=== PATIENT | male | born 1980 | race Caucasian/White ===

== ENCOUNTER 2022-01-27 17:32 | Emergency (ER) | payer OTHER, SELFPAY ==
--- NOTE | ~2022-01-27 | CT_ITS ---
EXAMINATION: CT abdomen pelvis w con DATE: 01/27/2022 19:40 INDICATION: rectal abscess TECHNIQUE: Computed tomography (CT) of the abdomen and pelvis was performed with 100 mL Omnipaque-300 intravenous contrast. Automated exposure control and iterative reconstruction technique were employe d. The dose-length product was 416.18 mGy-cm. COMPARISON: None. FINDINGS: Lower thorax: Unremarkable Liver: Normal. Biliary/Gallbladder: Gallbladder is normal. No bile duct dilation. Pancreas: No mass or duct dilation. Spleen: Normal. Adrenals:No mass. Kidneys: No mass, stone, or hydronephrosis. GI tract: No small or large bowel dilation. Appendix not visualized. Mesentery/Peritoneum: No ascites, mass, or free air. Retroperitoneum: No mass. Pelvis: Small volume free pelvic fluid, otherwise the pelvic organs are within normal limits. Soft Tissues: Subcutaneous fat stranding in the perineum. Bones: No acute osseous finding. Presumed chronic or physiologic wedge deformities of multiple lower thoracic vertebral bodies. IMPRESSION: No CT evidence of rectal abscess. Perineal subcutaneous edema/inflammation. Small volume free pelvic fluid, of doubtful clinical significance. Reviewed, dictated and finalized at location K. IMPRESSION: No CT evidence of rectal abscess. Perineal subcutaneous edema/inflammation. Sma ll volume free pelvic fluid, of doubtful clinical significance.
--- NOTE | ~2022-01-27 | XR_ITS ---
EXAM: XR wrist LT min 3V DATE: 01/27/2022 19:06 HISTORY: FALL TODAY,PAIN AROUND ENTIRE WRIST INTO RT SIDE WRIST . COMPARISON: None available. FINDINGS: Normal mineralization. No fracture or dislocation. No lytic or blastic lesion. Joint space s are maintained. No erosion or periosteal change. Soft tissues within normal limits. IMPRESSION: No acute osseous finding in the left wrist. Reviewed, dictated and finalized at location K.
[2022-01-27 17:55] VITALS: BP 127/71; PULSE 74; RESP 16; TEMP 36.4; O2SAT 99
--- NOTE | 2022-01-27 18:53 | ED.SKABFB ---
HPI - Skin/Abscess/Foreign Bdy General Chief complaint: Skin/Abscess/Foreign Body Stated complaint: knot on anus Time Seen by Provider: 01/27/22 18:38 History of Present Illness HPI narrative: 41-year-old male presents emergency room for multiple complaints. Patient states this morning he noticed a painful lump on his anus when he was using the restroom. States he had his boyfriend look, and there was a pea-sized red, painful mass there. Patient states that he freaked out and fell backwards landing on his left wrist. Patient is also complaining of left wrist pain with movement. Related Data Allergies Allergy/AdvReac Type Severity Reaction Status Date / Time ketorolac Allergy Unknown Swelling Verified 01/27/22 18:27 of Lip/Tongue/Throat Penicillins Allergy Unknown Anaphylactic Verified 01/27/22 18:27 Shock tramadol Allergy Unknown Muscle Verified 01/27/22 18:27 Spasms strawberry Allergy Anaphylaxis Verified 01/27/22 18:27 ibuprofen AdvReac Unknown ACID REFLUX Verified 10/09/15 00:08 Review of Systems Review of Systems: CONSTITUTIONAL: Denies fever, chills, or sweats. EYES: Denies visual changes, redness, or discharge. ENT: Denies rhinorrhea, congestion, sore throat, or otalgia. CARDIOVASCULAR: Denies chest pain, palpitations, or edema. RESPIRATORY: Denies cough or dyspnea. GASTROINTESTINAL: Reports painful rectal mass GENITOURINARY: Denies dysuria or hematuria. SKIN: Denies rash or itching. MUSCULOSKELETAL: Reports left wrist pain NEUROLOGIC: Denies headache, numbness, dizziness, or weakness. PSYCHIATRIC: Denies anxiety or depression. Exam Narrative: GENERAL: Well-appearing, well-nourished, and in no acute distress. HEAD: Normocephalic, atraumatic. EYES: PERRLA and EOMI. CHEST: Clear to auscultation. No respiratory distress. No wheezes rales or rhonchi HEART: Regular rate and rhythm. No murmur heard. Normal peripheral pulses. ABDOMEN: Soft, nontender, nondistended, normal active bowel sounds. Erythematous, indurated, pea-sized tender mass to external rectum EXTREMITIES: Left wrist: Tenderness and swelling over posterior wrist, limited range of motion due to pain, no snuffbox tenderness SKIN: Warm, dry, no rash. NEURO: No focal deficits. Alert and oriented x3. PSYCH: Normal mood and affect. Course Vital Signs Vital signs: Vital Signs Temperature 36.4 C L 01/27/22 17:55 Pulse Rate 74 01/27/22 17:55 Respiratory Rate 16 01/27/22 17:55 Blood Pressure 127/71 01/27/22 17:55 Pulse Oximetry 99 01/27/22 17:55 Oxygen Delivery Room Air 01/27/22 17:55 Temperature 36.4 C L 01/27/22 17:55 Pulse Rate 74 01/27/22 17:55 Respiratory Rate 16 01/27/22 17:55 Blood Pressure 127/71 01/27/22 17:55 Pulse Oximetry 99 01/27/22 17:55 Oxygen Delivery Room Air 01/27/22 17:55 MDM - Skin/Abscess/Foreign Bdy MDM Narrative Medical decision making narrative: 41-year-old male presented the emergency room for evaluation of a tender indurated mass to the external rectum. Patient is a was uncomfortable when he had bowel movements. Patient states that he will go 2 to 3 days without having a bowel movement, denying any constipation. CBC showed no evidence of a infection. There were concerns for a rectal abscess, CT abdomen with contrast showed no evidence of a rectal abscess. Patient likely has a hemorrhoid. Will provide patient instructions for care of hemorrhoids, and cover him for any potential early abscess. Lab Data Result diagrams: 01/27/22 18:58 01/27/22 18:58 Labs: Lab Results 01/27/22 01/27/22 Range/Units 18:58 18:58 WBC 7.1 (4.5-10.0) K/mm3 RBC 4.42 L (4.6-6.20) M/mm3 Hgb 13.7 L (14.0-18.0) g/dL Hct 39.8 L (42.0-52.0) % MCV 90.0 (80-100) fl MCH 31.0 (26-34) pg MCHC 34.4 (32-36) g/dl RDW 12.8 (11.5-14.5) % Plt Count 254 (150-375) k/mm3 MPV 10.4 (7.4-10.4) fl Immature Gran % (Auto) 0.3 (0-0.5
[2022-01-27 19:04] LABS: Basophils Percent Auto 0.4 % (0.2-1.2); Eosinophils Absolute Auto 0.2 K/mm3 (0-0.3); Eosinophils Percent Auto 2.2 % (0-4.4); Hematocrit 39.8 % (42.0-52.0); Hemoglobin 13.7 g/dL (14.0-18.0); Immature Granulocyte Absolute 0.02 K/mm3 (0.00-0.031); Immature Granulocyte Percent A 0.3 % (0-0.5); Lymphocytes Absolute Auto 1.96 K/mm3 (0.9-3.2); Lymphocytes Percent Auto 27.5 % (18.3-44.2); Mean Corpuscular HGB Conc 34.4 g/dl (32-36); Mean Platelet Volume 10.4 fl (7.4-10.4); Monocytes Absolute Auto 0.5 K/mm3 (0.1-0.6); Neutrophils Absolute Auto 4.5 K/mm3 (1.3-6.7); Neutrophils Percent Auto 62.6 % (45.5-73.1); Platelet Count Result 254 k/mm3 (150-375); Red Blood Count 4.42 M/mm3 (4.6-6.20); Red Cell Distribution Width 12.8 % (11.5-14.5); White Blood Count 7.1 K/mm3 (4.5-10.0)
[2022-01-27 19:13] LABS: Alanine Aminotransferase 25 U/L (6-50); Albumin Level 3.9 g/dL (3.5-5.1); Alkaline Phosphatase 46 U/L (38-126); Anion Gap 3 mmol/L (8-16); Aspartate Amino Transferase 24 U/L (17-59); Bilirubin,Total 0.5 mg/dL (0.2-1.3); Blood Urea Nitrogen 17 mg/dL (9-20); Calcium 8.6 mg/dL (8.4-10.2); Carbon Dioxide 26 mmol/L (22-30); Chloride 106 mmol/L (98-107); Estimated CRCL calculation 134 ml/min; Estimated Glomerular Filt Rate > 60; Glucose 102 mg/dL (65-110); Sodium 135 mmol/L (137-145)
[2022-01-27] MEDS: ONDANSETRON INJ 4 MG/2 ML VIAL (20:51)
[2022-01-27 20:59] VITALS: BP 117/92; PULSE 52; RESP 18; O2SAT 99
== END 2022-01-27 21:02 | disposition home or self-care (01) ==
PROVIDERS: Emergency Provider Nurse Practitioner Family
DX: K64.4 Residual hemorrhoidal skin tags (principal); K61.1 Rectal abscess; S69.92XA Unspecified injury of left wrist, hand and finger(s), initial encounter; W18.39XA Other fall on same level, initial encounter
CPT/HCPCS: 36415; 73110; 74177; 80053; 85025; 96374; 99284; J2405; Q9967

== ENCOUNTER 2022-05-20 13:27 | Emergency (ER) | payer OTHER, SELFPAY ==
--- NOTE | ~2022-05-20 | XR_ITS ---
EXAM: XR ankle RT min 3V DATE: 05/20/2022 14:12 HISTORY: pallet fell on foot x2 days ago, surgery 25 yrs ago . COMPARISON: None available. FINDINGS: K wire and cerclage wire fixation of the medial tibia and medial soft ligaments. No hardwar e fracture or lucency. Moderate degenerative change of the tibiotalar joint. Achilles enthesopathy. O ld healed distal fibular fracture. Ovoid old fracture fragment versus ossified loose body in the late ral joint compartment. Normal mineralization. No acute fracture or dislocation. No lytic or blastic l esion. Ankle joint effusion. Medial soft tissue swelling. IMPRESSION: No acute osseous finding or hardware related complication detected in the right ankle. Reviewed, dictated and finalized at location K.
[2022-05-20 13:59] VITALS: BP 119/64; PULSE 59; RESP 16; TEMP 36.3; O2SAT 100
--- NOTE | 2022-05-20 16:06 | ED.LOWEXIN ---
HPI - Extremity Injury (Lower) General Chief Complaint: Extremity Injury, Lower <ABIMAEL Carvalho Last Filed: 05/20/22 16:17> Stated Complaint: Right Foot Injury <ABIMAEL Carvalho Last Filed: 05/20/22 16:17> Time Seen by Provider: 05/20/22 15:22 <ABIMAEL Carvalho Last Filed: 05/20/22 16:17> Source: patient <ABIMAEL Carvalho Last Filed: 05/20/22 16:17> Mode of arrival: ambulatory <ABIMAEL Carvalho Last Filed: 05/20/22 16:17> Limitations: no limitations <ABIMAEL Carvalho Last Filed: 05/20/22 16:17> History of Present Illness HPI Narrative: Patient is a 41 y/o male who presents to the ED with c/o R ankle pain. Patient reports he was at work on Saturday when a wooden pallet fell onto his right foot. He complains of pain and swelling to his right ankle/foot since then. He has been able to ambulate, but has pain with this. Denies any numbness, tingling. No other injuries. Patient has not taken anything for pain. He reports history of right ankle surgery 25 years ago. <ABIMAEL Carvalho Last Filed: 05/20/22 16:17> Related Data Allergies/Adverse Reactions: Allergies Allergy/AdvReac Type Severity Reaction Status Date / Time ketorolac Allergy Unknown Swelling Verified 05/20/22 15:21 of Lip/Tongue/Throat Penicillins Allergy Unknown Anaphylactic Verified 05/20/22 15:21 Shock tramadol Allergy Unknown Muscle Verified 05/20/22 15:21 Spasms strawberry Allergy Anaphylaxis Verified 05/20/22 15:21 ibuprofen AdvReac Unknown ACID REFLUX Verified 05/20/22 15:21 <ABIMAEL Carvalho Last Filed: 05/20/22 16:17> Review of Systems Review of Systems: CONSTITUTIONAL: Denies fever, chills, or sweats. MUSCULOSKELETAL: Reports R ankle/foot pain. NEUROLOGIC: Denies tingling, numbness, or weakness. <Sherri Gamboa PA-C - Last Filed: 05/20/22 16:17> All systems reviewed & are unremarkable except as noted in HPI and below <Sherri Gamboa PA-C - Last Filed: 05/20/22 16:17> PMFSH Past Medical History Medical History: Medical History (Updated 05/20/22 @ 16:17 by Sherri Gamboa PA-C) No pertinent past medical history <Sherri Gamboa PA-C - Last Filed: 05/20/22 16:17> Surgical History Surgical History: Surgical History (Updated 05/20/22 @ 16:09 by Sherri Gamboa PA-C) History of ankle surgery <Sherri Gamboa PA-C - Last Filed: 05/20/22 16:17> Social History Social History: Social History (Updated 05/20/22 @ 16:09 by Sherri Gamboa PA-C) Smoking status: Current every day smoker Tobacco type: cigarettes <Sherri Gamboa PA-C - Last Filed: 05/20/22 16:17> Exam Narrative: GENERAL: Well appearing, well-nourished, non-toxic, in no acute distress. HEAD: Normocephalic, atraumatic. NECK: Supple. No adenopathy, no masses. RESPIRATORY: Airway patent, respirations nonlabored. CARDIOVASCULAR: Regular rate and rhythm without murmurs, rubs, or gallops. Pedal pulses 2+ and equal bilaterally. MUSCULOSKELETAL: Limited ROM of R ankle due to pain. Mild swelling and tenderness to palpation over anterior dorsal foot/ankle, extending medially. Sensation intact. No significant redness or warmth. SKIN: Warm, dry, normal color. No rashes. NEURO: A&O X3. Speech clear. Cranial nerves II-XII grossly intact. No ataxic movements. PSYCHIATRIC: Appropriate mood and affect. Normal interaction. <Sherri Gamboa PA-C - Last Filed: 05/20/22 16:17> Course COMMERCIAL TELLER/PA Physician Supervision For this patient encounter, I reviewed the COMMERCIAL TELLER or PA documentation, treatment plan, and medical decision making <Johann Garcia MD - Last Filed: 05/20/22 18:24> Vital Signs Vital signs: Vital Signs Temperature 97.3 F L 05/20/22 13:59 Pulse Rate 59 L 05/20/22 13:59 Respiratory Rate 16 05/20/22 13:59 Blood Pressure 119/64 05/20/22
== END 2022-05-20 16:40 | disposition home or self-care (01) ==
PROVIDERS: Emergency Provider Emergency Medicine
DX: S96.911A Strain of unspecified muscle and tendon at ankle and foot level, right foot, initial encounter (principal); S90.31XA Contusion of right foot, initial encounter; W20.8XXA Other cause of strike by thrown, projected or falling object, initial encounter; F17.210 Nicotine dependence, cigarettes, uncomplicated
CPT/HCPCS: 73610; 99283

== ENCOUNTER 2023-09-04 09:00 | Emergency (ER) | payer OTHER, SELFPAY ==
--- NOTE | ~2023-09-04 | XR_ITS ---
EXAMINATION: XR chest 1V portable DATE: 09/04/2023 10:02 INDICATION: Cough. Shortness of breath. TECHNIQUE: A single frontal view of the chest was obtained. COMPARISON: Chest 2 views 06/03/2019 FINDINGS: There is no pneumonia, pleural effusion, or pneumothorax. The heart size is normal. IMPRESSION: 1. No acute cardiopulmonary disease. Reviewed, dictated and finalized at location A. 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
[2023-09-04 09:03] VITALS: BP 142/84; PULSE 66; RESP 20; TEMP 36.7; O2SAT 100
[2023-09-04 10:12] LABS: Influenza A QL RT-PCR Negative (Negative); Influenza B QL RT-PCR Negative (Negative); RSV RNA, RT-PCR Positive (Negative); SARS-CoV-2 RNA PCR Negative (Negative)
[2023-09-04 10:28] LABS: Strep Group A RT-PCR NOT DETECTED (Negative)
--- NOTE | 2023-09-04 10:38 | ED.GENADULT ---
HPI - General Adult General Chief complaint: Upper Respiratory Infection Stated complaint: URI worsening Time Seen by Provider: 09/04/23 09:22 History of Present Illness HPI narrative: 42-year-old male presenting to the emergency department for evaluation of cough congestion and body aches. Patient states symptoms have been going on for the last 2 weeks but worsened over the last few days. Patient also does report associated sore throat. Related Data Allergies Allergy/AdvReac Type Severity Reaction Status Date / Time ketorolac Allergy Unknown Swelling Verified 09/04/23 09:31 of Lip/Tongue/Throat Penicillins Allergy Unknown Anaphylactic Verified 09/04/23 09:31 Shock tramadol Allergy Unknown Muscle Verified 09/04/23 09:31 Spasms strawberry Allergy Anaphylaxis Verified 09/04/23 09:31 ibuprofen AdvReac Unknown ACID REFLUX Verified 09/04/23 09:31 Review of Systems Review of Systems: All systems reviewed & are unremarkable except as noted in HPI and below PMFSH Past Medical History Medical History (Updated 09/04/23 @ 10:41 by Johann Garcia MD) No pertinent past medical history Surgical History Surgical History (Updated 05/20/22 @ 16:09 by Sherri Gamboa PA-C) History of ankle surgery Social History Social History (Updated 05/20/22 @ 16:09 by Sherri Gamboa PA-C) Smoking status: Current every day smoker Tobacco type: cigarettes Exam Narrative: APPEARANCE: Well appearing, no pain, no distress, well-nourished. HEAD: normocephalic, atraumatic. EYES: PERRLA/EOMI, conjunctivae clear. NOSE: Normal no drainage EARS:TMS clear with good light reflex. THROAT: Pharynx clear, no exudate. NECK: Supple. No adenopathy, no masses. RESPIRATORY: Airway patent, respirations nonlabored. Clear to auscultation bilaterally, no rales, rhonchi, wheezing. CARDIOVASCULAR: Regular rate and rhythm without murmurs rubs or gallops. ABDOMINAL: Soft, nontender, nondistended, normal bowel sounds MUSCULOSKELETAL: Moves all extremities. Strength/ROM intact, No edema, No calf tenderness. NEURO: Alert. Cranial nerves II through XII intact. Good gait. Good coordination SKIN: Warm, dry. Normal Color Course Course Emergency Course: 42-year-old male presenting to the emergency department for evaluation for viral syndrome. Patient did test positive for RSV, patient was negative for influenza COVID and strep. Patient was updated on results of his workup and plan for treatment for home. All questions and concerns were addressed. Vital Signs Vital signs: Vital Signs Temperature 98.1 F 09/04/23 09:03 Pulse Rate 66 09/04/23 09:03 Respiratory Rate 20 09/04/23 09:03 Blood Pressure 142/84 H 09/04/23 09:03 Pulse Oximetry 100 09/04/23 09:03 Oxygen Delivery Room Air 09/04/23 09:03 Temperature 98.1 F 09/04/23 09:03 Pulse Rate 66 09/04/23 09:03 Respiratory Rate 20 09/04/23 09:03 Blood Pressure 142/84 H 09/04/23 09:03 Pulse Oximetry 100 09/04/23 09:03 Oxygen Delivery Room Air 09/04/23 09:03 Medical Decision Making Differential Diagnosis Differential Diagnosis: RSV, COVID, strep throat, pneumonia Vital Signs Vital Signs: Vital Signs Temperature 98.1 F 09/04/23 09:03 Pulse Rate 66 09/04/23 09:03 Respiratory Rate 20 09/04/23 09:03 Blood Pressure 142/84 H 09/04/23 09:03 Pulse Oximetry 100 09/04/23 09:03 Oxygen Delivery Room Air 09/04/23 09:03 Temperature 98.1 F 09/04/23 09:03 Pulse Rate 66 09/04/23 09:03 Respiratory Rate 20 09/04/23 09:03 Blood Pressure 142/84 H 09/04/23 09:03 Pulse Oximetry 100 09/04/23 09:03 Oxygen Delivery Room Air 09/04/23 09:03 Lab Data Lab results reviewed: Yes I reviewed the patient's lab results. Labs: Lab Results 09/04/23 09/04/23 Range/Units 09:07 09:52 Influenza A (RT-PCR) Negative (Negative) Influenza B (RT-PCR) Negative (Negative) RSV (RT-PCR) Positive A
== END 2023-09-04 11:08 | disposition home or self-care (01) ==
PROVIDERS: Emergency Provider Emergency Medicine
DX: J22 Unspecified acute lower respiratory infection (principal); B97.4 Respiratory syncytial virus as the cause of diseases classified elsewhere; Z20.822 Contact with and (suspected) exposure to COVID-19; F17.210 Nicotine dependence, cigarettes, uncomplicated
CPT/HCPCS: 71045; 87637; 87651; 99283

== ENCOUNTER 2023-10-25 14:31 | Emergency (ER) | payer OTHER, SELFPAY ==
--- NOTE | ~2023-10-25 | XR_ITS ---
XR knee LT min 4V DATE: 10/25/2023 14:59 INDICATION: Posterior left knee pain. No known injury. TECHNIQUE: AP, bilateral oblique and crosstable lateral views COMPARISON: None FINDINGS: No fracture or dislocation, periosteal reaction or bone destruction, radiopaque intra-artic ular loose body or chondrocalcinosis. Joint spaces are well preserved. No joint effusion is evident. IMPRESSION: No significant abnormality Reviewed, dictated and finalized at location B. IMPRESSION: No significant abnormality
[2023-10-25 14:37] VITALS: BP 107/76; PULSE 78; RESP 18; TEMP 36.9; O2SAT 99
--- NOTE | 2023-10-25 14:44 | ED.GENADULT ---
HPI - General Adult General Chief complaint: Extremity Injury, Lower Stated complaint: Left Knee/Leg Pain Time Seen by Provider: 10/25/23 14:44 Source: patient Mode of arrival: ambulatory Limitations: no limitations History of Present Illness HPI narrative: 43-year-old male presents with complaint of pain behind left knee. Patient states that pain intermittently travels from left side of lower back into hip and down his entire leg to left foot but worse behind left ear. Has taking [id number] ibuprofen and Tylenol without relief of symptoms. Ambulatory with steady gait. Denies weakness, numbness to left lower extremity. Patient states he was not able to work today due to pain. Denies injury, no loss of bowel or bladder. All systems reviewed and negative except as noted above. Related Data Allergies Allergy/AdvReac Type Severity Reaction Status Date / Time ketorolac Allergy Unknown Swelling Verified 10/25/23 14:37 of Lip/Tongue/Throat Penicillins Allergy Unknown Anaphylactic Verified 10/25/23 14:37 Shock tramadol Allergy Unknown Muscle Verified 10/25/23 14:37 Spasms strawberry Allergy Anaphylaxis Verified 10/25/23 14:37 ibuprofen AdvReac Unknown ACID REFLUX Verified 10/25/23 14:37 Review of Systems Review of Systems: CONSTITUTIONAL: Denies fever, chills, or sweats. EYES: Denies visual changes, redness, or discharge. ENT: Denies rhinorrhea, congestion, sore throat, or otalgia. CARDIOVASCULAR: Denies chest pain, palpitations, or edema. RESPIRATORY: Denies cough or dyspnea. GASTROINTESTINAL: Denies abdominal pain, nausea, vomiting, or diarrhea. GENITOURINARY: Denies dysuria or hematuria. SKIN: Denies rash or itching. MUSCULOSKELETAL: Reports left-sided lower back pain radiating down left leg. Reports posterior left knee pain. NEUROLOGIC: Denies headache, numbness, or weakness. PSYCHIATRIC: Denies anxiety or depression. All other systems reviewed are negative, except as documented in HPI. [facility] Past Medical History Medical History (Updated 10/25/23 @ 15:39 by Andria Saxena NP) No pertinent past medical history Surgical History Surgical History (Updated 05/20/22 @ 16:09 by Sherri Gamboa PA-C) History of ankle surgery Social History Social History (Updated 10/16/22 @ 16:09 by TRACIE Carvalho Smoking status: Current every day smoker Tobacco type: cigarettes Comments At time of signature, agree with nursing past medical, surgical, social and family history. There is no relevant family history pertinent to the presenting complaint. Exam Narrative: GENERAL: This is a well-nourished, well-developed patient, in no apparent distress. HEAD: normocephalic, atraumatic. EYES: PERRL. Sclera clear/white. Vision is grossly intact. EARS: External ears normal, auditory canals clear and without drainage, TMs normal without perforation. Hearing grossly intact. NOSE: External nose normal with no obvious nasal discharge, nares without redness, no rhinorrhea. THROAT: Mucous membranes moist, posterior pharynx clear. NECK: Neck supple, non-tender without lymphadenopathy, masses or thyromegaly. CARDIOVASCULAR: Regular rate and rhythm without murmurs, gallops, or rubs. RESPIRATORY: Clear to auscultation. Breath sounds equal bilaterally. No wheezes, rales, or rhonchi. SKIN: warm, Dry, intact with no suspicious lesions or rash, good texture and turgor. NEURO: awake, alert, and oriented to person, place and time. There were no obvious focal neurologic abnormalities. EXTREMITIES: No joint tenderness, effusion, or edema noted. Tenderness on palpation of posterior left knee, no swelling noted. BACK: NO MIDLINE TENDERNESS. Lower extremity strength 5/5 bilaterally. Positive left straight leg raise. Course Course Level of Care: Express Care Visit Vital Signs Vital signs: Vital Signs Temperature 36.9 C 10/25/23 14:37 Pulse Rate 78 10/25/23 14:37 Respiratory
== END 2023-10-25 15:40 | disposition home or self-care (01) ==
PROVIDERS: Emergency Provider Nurse Practitioner Family
DX: M54.42 Lumbago with sciatica, left side (principal); F17.210 Nicotine dependence, cigarettes, uncomplicated
CPT/HCPCS: 73564; 99213; G0463

== ENCOUNTER 2023-11-09 16:13 | Emergency (ER) | payer OTHER, SELFPAY ==
--- NOTE | ~2023-11-09 | XR_ITS ---
EXAM: XR ankle RT min 3V DATE: 11/09/2023 16:41 HISTORY: diffuse rt ankle pain s/p fall wants hardware checked . COMPARISON: 05/20/2022. FINDINGS: Normal mineralization. Uncomplicated appearing medial malleolus fixation pins and cerclage wire. No fracture or dislocation. No lytic or blastic lesion. Moderate degenerative change at the ti biotalar joint. No erosion or periosteal change. Soft tissues within normal limits. IMPRESSION: No acute osseous finding in the right ankle. No hardware related complication. Reviewed, dictated and finalized at location K. IMPRESSION: No acute osseous finding in the right ankle. No hardware related co mplication.
--- NOTE | 2023-11-09 16:25 | ED.LOWEXIN ---
HPI - Extremity Injury (Lower) General Chief Complaint: Extremity Injury, Lower Stated Complaint: FALL Time Seen by Provider: 11/09/23 16:27 Source: patient Mode of arrival: ambulatory Limitations: no limitations History of Present Illness HPI Narrative: Hai is a 43-year-old male patient presenting to the clinic today with complaints of right ankle pain after falling at a local hotel. States he was using a bathroom by a pool and turned around to lock the door and slipped and fell injuring the right ankle. Related Data Allergies Allergy/AdvReac Type Severity Reaction Status Date / Time ketorolac Allergy Severe Swelling Verified 11/09/23 16:32 of Lip/Tongue/Throat Penicillins Allergy Severe Anaphylactic Verified 11/09/23 16:32 Shock strawberry Allergy Severe Anaphylaxis Verified 11/09/23 16:32 tramadol Allergy Intermediate Muscle Verified 11/09/23 16:32 Spasms ibuprofen AdvReac Mild ACID REFLUX Verified 11/09/23 16:32 Review of Systems Review of Systems: Pertinent positives per HPI. Patient denies any fever, chills, rash, headache, visual changes, dizziness, cough, runny nose, sore throat, shortness of breath, chest pain, palpitations, nausea, vomiting, diarrhea, constipation, abdominal pain, or any urinary issues. PMFSH Past Medical History Medical History No pertinent past medical history Surgical History Surgical History History of ankle surgery Social History Social History Smoking status: Current every day smoker Tobacco type: cigarettes Comments At the time of my signature, I reviewed and agree with the nursing past medical, surgical, social, and family history. There is no relevant family history pertinent to the patient complaint. Exam Narrative: General: Well-developed, well nourished, in no apparent distress Head: Normocephalic, atraumatic. Cardio: Regular rate and rhythm, s1 and s2 normal, no murmur appreciated. Resp: Clear to auscultation bilaterally, no rhonchi, rales, wheezing or rubs. Musculoskeletal: No deformity, mild swelling noted to the medial ankle, tender to palpation over the medial and posterior ankle, pain with dorsal and plantar flexion against resistance, grossly normal range of motion, muscle strength strong and equal, peripheral pulse strong, no edema, no cyanosis, normal gait and station Course Course Emergency Course: Portions of this record may have been created with voice recognition software. Level of Care: Express Care Visit Vital Signs Vital signs: Vital signs reviewed MDM - Extremity Injury (Lower) MDM Narrative Medical decision making narrative: At the time of visit patient is resting comfortably on the exam table. Patient appears to be nontoxic. Diagnostics: X-ray of the right ankle was performed and was negative for any sign of fracture or malalignment. Plan: I suspect patient has a right ankle sprain. Supportive measures were discussed with the patient and they voiced understanding discharge instructions and agrees to treatment plan. Return precautions reviewed Differential Diagnosis Differential diagnosis: Likely ankle sprain and strain and ankle fracture Discharge Plan Discharge Clinical Impression: Right ankle sprain Patient Disposition: Home, Self-Care Condition: Stable Instructions: Antibiotic Form, Ankle Sprain (ED) Additional Instructions: X-rays negative for any sign of fracture or malalignment. No hardware related complication. Rest, ice, elevate, and wear zaid wrap as directed Tylenol/motrin for pain as discussed. Gradually bear weight No running or sports until healed. Follow up with your PCP if symptoms persist more than 1 week. Prescriptions: No Action prednisone 20 mg tablet 40 mg PO DAILY 5 Days Qty
[2023-11-09 16:29] VITALS: BP 117/66; PULSE 59; RESP 16; TEMP 37.2; O2SAT 98
== END 2023-11-09 17:29 | disposition home or self-care (01) ==
PROVIDERS: Emergency Provider Nurse Practitioner Family
DX: S93.401A Sprain of unspecified ligament of right ankle, initial encounter (principal); W01.0XXA Fall on same level from slipping, tripping and stumbling without subsequent striking against object, initial encounter; F17.210 Nicotine dependence, cigarettes, uncomplicated
CPT/HCPCS: 73610; 99213; G0463